=== PATIENT | male | born 1975 | race Caucasian/White ===

== ENCOUNTER 2018-06-17 22:47 | Observation (INO) | payer MEDICARE ==
[2018-06-17 23:26] VITALS: BMI 32.2
--- NOTE | 2018-06-17 23:30 | PDOC ---
History of Present Illness - General Chief Complaint: Chest Pain Stated Complaint: CHEST PAIN Time Seen by Provider: 06/17/18 23:14 History Source: Patient Exam Limitations: Language Barrier - History of Present Illness Initial Comments: History is interpreted with a Divehi speaking telecommunications sales representative. 42 yo M w a hx of HTN and HCL presents to the ER via private auto because he feels badly has some shortness of breath and some pain in his left arm. He has been experiencing his SOB and difficulty breathing for 3 days which has not been getting better or worse but staying the same. He says his left arm pain causes his hands to feel numb and occasionally sweaty. He endorses left sided chest pain which is rated 7/10 in intensity and does not radiate. He endorses nausea but denies emesis. He also endorses nausea associated with the chest pain but denies diaphoresis. The pain is worse when he does any physical activity. He says the pain feels like a squeezing pressure type of sensation. He says he can lie flat at night with no difficulty. The chest pain has been continuous for the past 3 days. He also endorses having a dry cough during this time period. He denies any recent fevers, chills, infections, weakness, abdominal pain, diarrhea, constipation, headache, neck pain, blurry vision, dizziness, lightheadedness, or vertigo PCP: None PSH: Left foot surgery Allergies: NKA, NKDA Social Hx: Denies smoking, 20 beers a month, Denies other substance usage. Past History - Past Medical History Allergies/Adverse Reactions: Allergies Allergy/AdvReac Type Severity Reaction Status Date / Time No Known Allergies Allergy Verified 06/17/18 23:00 Home Medications: Ambulatory Orders NK [No Known Home Medication] 06/17/18 COPD: No - Suicide/Smoking/Psychosocial Hx Smoking History: Never smoked Have you smoked in the past 12 months: No Information on smoking cessation initiated: No Hx Alcohol Use: No Drug/Substance Use Hx: No Review of Systems - Review of Systems Able to Perform ROS?: Yes Comments:: CONSTITUTIONAL: Absent: fever, no chills, no fatigue EYES: Absent: visual changes ENT: Absent: ear pain, no sore throat CARDIOVASCULAR: Present: Chest pain Absent: no palpitations RESPIRATORY: Present: cough, SOB GI: Present: Nausea Absent: abdominal pain, no vomiting, no constipation, no diarrhea GENITOURINARY: Absent: dysuria, no frequency, no hematuria MUSKULOSKELETAL: Absent: back pain, no arthralgia, no myalgia SKIN: Absent: rash NEURO: Absent: headache *Physical Exam - Vital Signs Last Vital Signs Temp Pulse Resp BP Pulse Ox 97.9 F 104 H 22 H 148/94 97 06/17/18 22:52 06/17/18 22:52 06/17/18 22:52 06/17/18 22:52 06/17/18 22:52 - Physical Exam Comments: GENERAL: Well-appearing, well-nourished. No apparent distress. HEENT: Normocephalic, atraumatic. PERRL, EOM intact. CARDIOVASCULAR: Normal S1, S2. tachycardic rate and regular rhythm. PULMONARY: Tachypnic. No evidence of respiratory distress. Lungs clear to auscultation bilaterally. No wheezing, rales or rhonchi. ABDOMEN: Soft, non-distended, non-tender. EXTREMITIES: Normal ROM in all four extremities. No gross deformities. SKIN: Warm, dry. No rash NEUROLOGICAL: No focal neurological deficits. Moderate Sedation - Procedure Monitoring Vital Signs: Procedure Monitoring Vital Signs Temperature 97.9 F 06/17/18 22:52 Pulse Rate 104 H 06/17/18 22:52 Respiratory Rate 22 H 06/17/18 22:52 Blood Pressure 148/94 06/17/18 22:52 O2 Sat by Pulse Oximetry (%) 97 06/17/18 22:52 Heart Score/ECG Review - History History: Slightly suspicious - Age Age: </= 45 - Risk Factors Risk Factors Heart Score: Yes Hx Hypercholesterolemia, Yes Hx Hypertension Based on the list above the patient has:: 1-2 risk factors ED Treatment Course - LABORATORY CBC & Chemistry Diagram: 06/17/18 23:40 06/17/18 23:40 Medical Decision Making - Medical Decision Making 42 yo M w a hx of HTN and HCL presents to the ER via private auto because he feels badly has some shortness of breath and some pain in his left arm. He has been experiencing his SOB and difficulty breathing for 3 days which has not been getting better or worse but staying the same. He says his left arm pain causes his hands to feel numb and occasionally sweaty. He endorses left sided chest pain which is rated 7/10 in intensity and does not radiate. He endorses nausea but denies emesis. He also endorses nausea associated with the chest pain but denies diaphoresis. The pain is worse when he does any physical activity. He says the pain feels like a squeezing pressure type of sensation. He says he can lie flat at night with no difficulty. The chest pain has been continuous for the past 3 days. He also endorses having a dry cough during this time period. VS: Tachycardic, tachypnic, hypertensive DDx IBNLT: ACS/TN, Pneumothorax, PNA, Arrhythmia, costochondritis, URI, MSK chest pain, PE, Heart failure. Plan: Labs, CXR, EKG, Urine, aspirin, Continuous cardiac monitoring, re-assess. - Patient will likely be admitted to telemetry - EKG normal sinus. - Signing out patient to overnight resident for continued care. *DC/Admit/Observation/Transfer Diagnosis at time of Disposition: Chest pain - Referrals - Patient Instructions - Post Discharge Activity
[2018-06-17] MEDS ORDERED: ASPIRIN 81 MG CHEWABLE TABLETS PO ONE (23:34)
[2018-06-17] MEDS ORDERED: ASPIRIN 81 MG CHEWABLE TABLETS ONE (23:39)
[2018-06-17 23:51] LABS: BASO % 0.6 % (0-2.0); EOS % 3.6 % (0-4.5); HEMATOCRIT 43.5 % (35.4-49); HEMOGLOBIN 14.8 GM/dL (11.7-16.9); LYMPH % 26.6 % (8-40); MCH 28.5 pg (25.7-33.7); MCHC 34.1 g/dl (32.0-35.9); MEAN CELL VOLUME 83.7 fl (80-96); MEAN PLT VOLUME 8.9 fl (7.5-11.1); MONO % 10.1 % (3.8-10.2); NEUT % 59.1 % (42.8-82.8); PLATELET COUNT 215 K/MM3 (134-434); RBC 5.19 M/mm3 (4.00-5.60); RDW 13.3 % (11.9-15.9); WHITE BLOOD COUNT 9.6 K/mm3 (4.0-10.0)
--- NOTE | 2018-06-18 00:12 | PDOC ---
Attending Attestation - Resident Resident Name: Jorge L Breaux - ED Attending Attestation I have performed the following: I have examined & evaluated the patient, The case was reviewed & discussed with the resident, I agree w/resident's findings & plan, Exceptions are as noted - HPI HPI: 06/18/18 00:48 THis is a 42 yo M h/o HLD, HTN who presents to the ER with a complaint of chest pain Symptoms have been present for the past 3 days Associated with radiation to the left leg No shortness of breath (+) diaphoresis No nausea or vomiting Not worse with exertion No recent travel, no lower extremity edema - Physicial Exam PE: 06/18/18 00:11 GENERAL: The patient is in no acute distress. HEAD: Normal with no signs of trauma. EYES: PERRLA, EOMI, sclera anicteric, conjunctiva clear. ENT: Ears normal, nares patent, oropharynx clear without exudates. Moist mucous membranes. NECK: Normal range of motion, supple without lymphadenopathy, JVD, or masses. LUNGS: Breath sounds equal, clear to auscultation bilaterally. No wheezes, and no crackles. HEART:Regular rate and rhythm, normal S1 and S2 without murmur, rub or gallop. ABDOMEN: Soft, nontender, normoactive bowel sounds. No guarding, no rebound. No masses palpable. EXTREMITIES: Normal range of motion, no edema. No clubbing or cyanosis. No erythema, or tenderness. NEUROLOGICAL: Cranial nerves II through XII grossly intact. Normal speech. No focal neurological deficits. MUSCULOSKELETAL: Back non-tender to palpation, no CVA tenderness SKIN: Warm, Dry, normal turgor, no rashes or lesions noted. - Medical Decision Making 06/18/18 00:11 EKG - Twelve-lead EKG was performed and reviewed by me. There is normal sinus rhythm with a normal rate. The axis is normal. The intervals are normal. There are no ST or T wave abnormalities. Impression: Normal twelve-lead EKG 06/18/18 00:11 Laboratory Tests 06/17/18 23:40 WBC 9.6 Hgb 14.8 Hct 43.5 Plt Count 215 06/18/18 01:39 Laboratory Tests 06/17/18 06/17/18 23:40 23:40 D-Dimer 399 Sodium 135 L Potassium 3.7 Chloride 102 Carbon Dioxide 26 BUN 14 Creatinine 0.8 Creatine Kinase 250 Creatine Kinase Index 1.6 CK-MB (CK-2) 4.1 H Troponin I < 0.02 B-Natriuretic Peptide 18.4 D dimer negative Will plan to place on observation Heart Score/ECG Review - History History: Highly suspicious - Electrocardiogram EKG: Normal - Age Age: </= 45 - Risk Factors Risk Factors Heart Score: Yes Hx Hypercholesterolemia, Yes Hx Hypertension, No Smoking History, No Positive family hx of cardiac disease, Yes Hx Obesity Based on the list above the patient has:: >/=3 risk factors or Hx atherosclerotic disease - Troponin Troponin: </= normal limit - Score Heart Score - Total: 4
[2018-06-18 00:20] LABS: INR 1.02 (0.83-1.09)
[2018-06-18 00:25] LABS: ALK PHOS 89 U/L (45-117); ANION GAP 7 MMOL/L (8-16); BILIRUBIN,TOTAL 0.3 mg/dL (0.2-1); BLOOD UREA NITROGEN 14 mg/dL (7-18); CALCIUM 8.9 mg/dL (8.5-10.1); CHLORIDE 102 mmol/L (98-107); CO2 26 mmol/L (21-32); CREATININE 0.8 mg/dL (0.55-1.3); GLUCOSE,RANDOM 126 mg/dL (74-106); MAGNESIUM 2.3 mg/dL (1.8-2.4); N-TERMINAL BNP 18.4 pg/ml (5-125); POTASSIUM 3.7 mmol/L (3.5-5.1); SGOT/AST 26 U/L (15-37); SGPT/ALT 70 U/L (13-61); SODIUM 135 mmol/L (136-145)
--- NOTE | 2018-06-18 00:31 | PDOC ---
*Physical Exam - Vital Signs Last Vital Signs Temp Pulse Resp BP Pulse Ox 97.9 F 84 18 148/94 97 06/17/18 22:52 06/18/18 00:22 06/18/18 00:22 06/17/18 22:52 06/17/18 22:52 Heart Score/ECG Review - History History: Highly suspicious - Electrocardiogram EKG: Normal - Age Age: </= 45 - Risk Factors Risk Factors Heart Score: Yes Hx Hypercholesterolemia, Yes Hx Hypertension, Yes Hx Obesity Based on the list above the patient has:: >/=3 risk factors or Hx atherosclerotic disease - Troponin Troponin: </= normal limit - Score Heart Score - Total: 4 ED Treatment Course - LABORATORY CBC & Chemistry Diagram: 06/17/18 23:40 06/17/18 23:40 - ADDITIONAL ORDERS Additional order review: Laboratory Results 06/17/18 06/17/18 23:40 23:40 PT with INR 12.00 INR 1.02 Sodium 135 L Potassium 3.7 Chloride 102 Carbon Dioxide 26 Anion Gap 7 L BUN 14 Creatinine 0.8 Creat Clearance w eGFR > 60 Random Glucose 126 H Calcium 8.9 Magnesium 2.3 Total Bilirubin 0.3 AST 26 ALT 70 H Alkaline Phosphatase 89 Creatine Kinase 250 Troponin I < 0.02 B-Natriuretic Peptide 18.4 Total Protein 8.0 Albumin 4.0 06/17/18 23:40 RBC 5.19 MCV 83.7 MCHC 34.1 RDW 13.3 MPV 8.9 Neutrophils % 59.1 Lymphocytes % 26.6 Monocytes % 10.1 Eosinophils % 3.6 Basophils % 0.6 - Medications Given in the ED: ED Medications Discontinued Medications Generic Name Dose Route Start Last Admin Trade Name Freq PRN Reason Stop Dose Admin Aspirin 162 mg 06/17/18 23:34 06/17/18 23:47 Asa - PO 06/17/18 23:35 162 mg ONCE ONE Administration Medical Decision Making - Medical Decision Making 06/18/18 00:[address] Coughlin. Patient is 42M with history of HTN, obesity, HLD here today with typical chest pain. EKG shows nsr, no st or t wave changes. Pending labs. D-dimer ordered due to tachycardia. Will admit, HEART score of 4 pending trop. 06/18/18 01:03 CBC, CMP normal. Trop neg. D-dimer negative. CXR clear. Medicine team paged. *DC/Admit/Observation/Transfer Diagnosis at time of Disposition: Chest pain - Discharge Dispostion Condition at time of disposition: Stable Decision to Admit order: Yes - Referrals - Patient Instructions - Post Discharge Activity
[2018-06-18] MEDS ORDERED: ACETAMINOPHEN 325 MG TABLET (FP) PO ONE (02:24)
[2018-06-18] MEDS ORDERED: ACETAMINOPHEN 325 MG TABLET (FP) ONE ×2 (02:38→12:04)
--- NOTE | 2018-06-18 03:25 | PN ---
Teaching Attending Note Name of Resident: Patt Block ATTENDING PHYSICIAN STATEMENT I saw and evaluated the patient. I reviewed the resident's note and discussed the case with the resident. I agree with the resident's findings and plan as documented. SUBJECTIVE: Patient is a 42 year old man with PMH of HTN and HLD who presents to the ER via private auto because he feels badly, and has some shortness of breath and some pain in his left arm. He has been experiencing his SOB and difficulty breathing for 3 days which has not been getting better or worse but staying the same. He says his left arm pain causes his hands to feel numb and occasionally sweaty. He also has left sided chest pain which is rated 7/10 in intensity and does not radiate. He has nausea but denies vomiting or diaphoresis. The pain is worse when he does any physical activity. He says the pain feels like a squeezing pressure type of sensation. He says he can lie flat at night with no difficulty. The chest pain has been continuous for the past 3 days. He also has had a dry cough during this time period. Says he drinks 10 beers every week. Patient denies any recent fevers, chills, infections, weakness, abdominal pain, diarrhea, constipation, headache, neck pain, blurry vision, dizziness, lightheadedness, or vertigo OBJECTIVE: Alert Vital Signs Period Temp Pulse Resp BP Sys/Kay Pulse Ox Last 24 Hr 97.9 F 84-104 18-22 127-148/84-94 97 HEENT: No Jaundice, eye redness or discharge, PERRLA, EOMI. Normocephalic, atraumatic. External ears are normal and hearing is grossly intact. No nasal discharge. Neck: Supple, nontender. No palpable adenopathy or thyromegaly. No JVD Chest: Good effort. Clear to auscultation and percussion. Heart: Regular. No S3, rub or murmur Abdomen: Not distended, soft, nontender and no HSM. No rebound or guarding. Normoactive bowel sounds. Ext: Peripheral pulses intact. No leg edema. Skin: Warm and dry. No petechiae, rash or ecchymosis. Neuro: Alert. Oriented x3. CN 2-12 grossly intact. Sensation grossly intact in all four extremities and DTR are symmetric. Home Medications Medication Instructions Recorded NK [No Known Home Medication] 06/17/18 Abnormal Lab Results 06/17/18 23:40 Sodium 135 L Anion Gap 7 L Random Glucose 126 H ALT 70 H CK-MB (CK-2) 4.1 H ASSESSMENT AND PLAN: 1. Chest pain - Patient is now painfree, comfortable at rest, oxygenating well on room air and d-dimer is not elevated. No acute abnormality on CXR, EKG shows NSR with no acute ST-T wave changes and initial troponin is negative. He has multiple risk factors for CAD. Will admit to telemetry to rule out ACS, get fasting lipids, ECHO and consult cardiology. He got Aspirin in the ER. Will check HbA1c and treat with Lipitor 40 mg po qd. 2. Obesity - Will provide patient all the necessary assistance, counseling and positive reinforcement to facilitate weight loss. Consult major case detective. 3. Hypertension - He has not been on any medication consistently. Will treat with Lisinopril 20 mg bid and HCTZ 12.5 mg qd to ensure smooth [id number] good BP control. May revise his regimen after the ECHO result is available. Nonpharmacologic measures to control hypertension like weight loss, salt restriction and exercise discussed. 4. Alcohol abuse - Implement [facility] alcohol withdrawal protocol, fall and aspiration precautions. Treat with thiamine and folic acid and monitor electrolytes (Ca,Mg,K,P). Powder Operator patient about abstaining from alcohol and refer to alcohol detox upon discharge. 5. DVT prophylaxis - Lovenox 40 mg SQ q 24 hours. 6. Advance directives - Full code
--- NOTE | 2018-06-18 03:33 | HP ---
CHIEF COMPLAINT:chest pain PCP:none HISTORY OF PRESENT ILLNESS: Patient is a 42 year old male with no significant past medical history presented with substernal chest pain radiating to the left arm that started 3 days ago. Patient described chest pain as intermittent, substernal, 7/10, pressure-like chest pain, radiating to the left arm, lasting about 2 hours per episode, occurring at least 3 times a day since 3 days ago. Patient is unsure what makes it better or worse, but reported that he has been having the occasional chest pain in the last 5 months, that usually occurs after he drinks alcohol. It usually resolves on its own, but this time, because it happened more frequently patient came to the ED. He denies any fever, chills, headache, dizziness, nausea, vomiting, SOB, palpitations, abdominal pain, diarrhea, urinary symptoms. Patient does not have a PCP, and has not seen a doctor in years. He reports having "high blood pressure" every time he feels anxious and would take baby aspirin. He usually drinks at least 10 bottles of beer weekly, with last drink 12 bottles last night. On interview, patient reported chest pain has resolved. ER course was notable for: (1)Trop <0.02, EKG NSR, no ST-T wave changes (2) (3) Recent Travel: PAST MEDICAL HISTORY: PAST SURGICAL HISTORY: Social History: Smoking: Alcohol: Drugs: Family History: Allergies No Known Allergies Allergy (Verified 06/17/18 23:00) HOME MEDICATIONS: Home Medications Medication Instructions Recorded NK [No Known Home Medication] 06/17/18 REVIEW OF SYSTEMS CONSTITUTIONAL: Absent: fever, chills, diaphoresis, generalized weakness, malaise, loss of appetite, weight change HEENT: Absent: rhinorrhea, nasal congestion, throat pain, throat swelling, difficulty swallowing, mouth swelling, ear pain, eye pain, visual changes CARDIOVASCULAR: Absent: chest pain, syncope, palpitations, irregular heart rate, lightheadedness , peripheral edema RESPIRATORY: Absent: cough, shortness of breath, dyspnea with exertion, orthopnea, wheezing, stridor, hemoptysis GASTROINTESTINAL: Absent: abdominal pain, abdominal distension, nausea, vomiting, diarrhea, constipation, melena, hematochezia GENITOURINARY: Absent: dysuria, frequency, urgency, hesitancy, hematuria, flank pain, genital pain MUSCULOSKELETAL: Absent: myalgia, arthralgia, joint swelling, back pain, neck pain SKIN: Absent: rash, itching, pallor HEMATOLOGIC/IMMUNOLOGIC: Absent: easy bleeding, easy bruising, lymphadenopathy, frequent infections ENDOCRINE: Absent: unexplained weight gain, unexplained weight loss, heat intolerance, cold intolerance NEUROLOGIC: Absent: headache, focal weakness or paresthesias, dizziness, unsteady gait, seizure, mental status changes, bladder or bowel incontinence PSYCHIATRIC: Absent: anxiety, depression, suicidal or homicidal ideation, hallucinations. PHYSICAL EXAMINATION Vital Signs - 24 hr 06/17/18 06/18/18 06/18/18 22:52 00:22 00:33 Temperature 97.9 F Pulse Rate 104 H Pulse Rate [ 84 Apical] Respiratory 22 H 18 Rate Blood Pressure 148/94 Blood Pressure 127/84 [Right Arm] O2 Sat by Pulse 97 Oximetry (%) GENERAL: Awake, alert, and fully oriented, in no acute distress. HEAD: Normal with no signs of trauma. EYES: PERRLA, EOMI, sclera anicteric, conjunctiva clear. EARS, NOSE, THROAT: Ears normal, oropharynx clear without exudates. Moist mucous membranes. NECK: Normal range of motion, supple without lymphadenopathy, JVD, or masses. LUNGS: Breath sounds equal, clear to auscultation bilaterally. HEART: Regular rate and rhythm, normal S1 and S2 without murmur, rub or gallop. ABDOMEN: Soft, nontender, not distended, normoactive bowel sounds. MUSCULOSKELETAL: Normal range of motion at all joints. No bony deformities or tenderness. No CVA tenderness. UPPER EXTREMITIES: 2+ pulses, warm, well-perfused. No peripheral edema. LOWER EXTREMITIES: 2+ pulses, warm, well-perfused. No peripheral edema. NEUROLOGICAL: Cranial nerves II-XII intact. Motor strength 5/5, sensation intact. Normal speech. Normal gait. PSYCHIATRIC: Cooperative. Good eye contact. Appropriate mood and affect. SKIN: Warm, dry, normal turgor, no rashes or lesions. Laboratory Results - last 24 hr 06/17/18 06/17/18 06/17/18 23:40 23:40 23:40 WBC 9.6 RBC 5.19 Hgb 14.8 Hct 43.5 MCV 83.7 MCH 28.5 MCHC 34.1 RDW 13.3 Plt Count 215 MPV 8.9 Absolute Neuts (auto) 5.7 Neutrophils % 59.1 Lymphocytes % 26.6 Monocytes % 10.1 Eosinophils % 3.6 Basophils % 0.6 Nucleated RBC % 0 PT with INR 12.00 INR 1.02 PTT (Actin FS) D-Dimer Sodium 135 L Potassium 3.7 Chloride 102 Carbon Dioxide 26 Anion Gap 7 L BUN 14 Creatinine 0.8 Creat Clearance w eGFR > 60 Random Glucose 126 H Calcium 8.9 Magnesium 2.3 Total Bilirubin 0.3 AST 26 ALT 70 H Alkaline Phosphatase 89 Creatine Kinase 250 Creatine Kinase Index 1.6 CK-MB (CK-2) 4.1 H Troponin I < 0.02 B-Natriuretic Peptide 18.4 Total Protein 8.0 Albumin 4.0 06/17/18 06/17/18 23:40 23:40 WBC RBC Hgb Hct MCV MCH MCHC RDW Plt Count MPV Absolute Neuts (auto) Neutrophils % Lymphocytes % Monocytes % Eosinophils % Basophils % Nucleated RBC % PT with INR INR PTT (Actin FS) 30.3 D-Dimer 399 Sodium Potassium Chloride Carbon Dioxide Anion Gap BUN Creatinine Creat Clearance w eGFR Random Glucose Calcium Magnesium Total Bilirubin AST ALT Alkaline Phosphatase Creatine Kinase Creatine Kinase Index CK-MB (CK-2) Troponin I B-Natriuretic Peptide Total Protein Albumin ASSESSMENT/PLAN: Patient is a 42 year old male with no significant past medical history presented with substernal chest pain radiating to the left arm that started 3 days ago. #Chest pain, rule out ACS -trop negative x1, EKG -NSR with no ST-T wave changes -will trend trop and EKG -Aspirin given at the ED -Echo -Lipid profile -HbA1c -Cardiology (Dr. Marshall) consulted #Hypertension -Has not been on any medications -Will start Lisinopril 20mg BID and HCTZ 12.5mg daily if BP remains elevated -Monitor BP #EtOH abuse -CIWA currently 0 -will continue to monitor -Ativan PRN for now -Fall and aspiration precautions -Will give thiamine and folic acid #FEN -Not on any standing fluids -Electrolytes wnl, routine bmp monitoring -Sodium controlled diet #Prophylaxis -Lovenox 40mg sq daily #Disposition -full code -tele obs Visit type - Emergency Visit Emergency Visit: Yes ED Registration Date: 06/18/18 Care time: The patient presented to the Emergency Department on the above date and was hospitalized for further evaluation of their emergent condition. - New Patient This patient is new to [place] today: Yes Date on this admission: 06/18/18 - Critical Care Critical Care patient: No
[2018-06-18 03:54] LABS: URINE APPEARANCE CLEAR; URINE BILIRUBIN NEGATIVE (<2.0 mg/dL); URINE COLOR STRAW; URINE GLUCOSE (UA) NEGATIVE (NEGATIVE); URINE KETONE NEGATIVE (NEGATIVE); URINE LEUK ESTERASE NEGATIVE (NEGATIVE); URINE NITRITE NEGATIVE (NEGATIVE); URINE PROTEIN NEGATIVE (NEGATIVE); URINE UROBILINOGEN NEGATIVE mg/dL (0.2-1.0)
[2018-06-18] MEDS ORDERED: LORazepam 2 MG/ML SDV VIAL IVPUSH PRN (04:23)
[2018-06-18 07:31] LABS: BASO % 0.4 % (0-2.0); EOS % 6.2 % (0-4.5); HEMATOCRIT 42.1 % (35.4-49); HEMOGLOBIN 14.2 GM/dL (11.7-16.9); LYMPH % 32.9 % (8-40); MCHC 33.8 g/dl (32.0-35.9); MEAN CELL VOLUME 82.7 fl (80-96); MEAN PLT VOLUME 9.6 fl (7.5-11.1); MONO % 9.4 % (3.8-10.2); NEUT % 51.1 % (42.8-82.8); PLATELET COUNT 218 K/MM3 (134-434); RBC 5.09 M/mm3 (4.00-5.60); RDW 13.6 % (11.9-15.9); WHITE BLOOD COUNT 7.5 K/mm3 (4.0-10.0)
[2018-06-18 08:02] LABS: ALBUMIN 3.8 g/dl (3.4-5.0); ALK PHOS 77 U/L (45-117); ANION GAP 6 MMOL/L (8-16); BILIRUBIN,TOTAL 0.4 mg/dL (0.2-1); BLOOD UREA NITROGEN 14 mg/dL (7-18); CALCIUM 8.7 mg/dL (8.5-10.1); CHLORIDE 102 mmol/L (98-107); CO2 28 mmol/L (21-32); CREATININE 0.7 mg/dL (0.55-1.3); GLUCOSE,RANDOM 110 mg/dL (74-106); MAGNESIUM 2.4 mg/dL (1.8-2.4); PHOSPHOROUS 3.5 mg/dL (2.5-4.9); POTASSIUM 3.9 mmol/L (3.5-5.1); SGOT/AST 21 U/L (15-37); SGPT/ALT 63 U/L (13-61); SODIUM 136 mmol/L (136-145); TOT PROT 7.5 g/dl (6.4-8.2)
[2018-06-18] MEDS ORDERED: ENOXAPARIN NA (PORCINE) 40 MG/0.4 ML DISP.SYRIN SQ SCH (10:00)
[2018-06-18] MEDS ORDERED: THIAMINE HCL 100 MG TABLET (FP) PO SCH (10:00)
[2018-06-18] MEDS ORDERED: FOLIC ACID 1 MG TABLET (FP) PO SCH (10:00)
[2018-06-18] MEDS ORDERED: HYDROCHLOROTHIAZIDE 12.5 MG CAPSULE (FP) PO SCH (10:00)
[2018-06-18] MEDS ORDERED: LISINOPRIL 20 MG TABLET (FP) PO SCH (10:00)
[2018-06-18 10:12] VITALS: BP 119/78; PULSE 64; TEMP 98.2
--- NOTE | 2018-06-18 10:51 | CON.CARD ---
Cardiology Consult (text) - Consultation Consultation Note: cc: cp hpi: 42 m hx etoh abuse here with cp. Past few days noticed left chest pressure with radiation to left arm as well. Mild, happened at rest, worse when moving left arm around. Mild sob as well. No dizzy loc pnd orthopnea le edema. No hx hrt dz. Cp resolved now, feels well. pmh: per hpi psh: foot surgery fam: no premature cad, scd social: no tob ros: per hpi; no fever, nvd, cough locke vision changes gib hematuria dysuria meds: none taken Vital Signs Period Temp Pulse Resp BP Sys/Kay Pulse Ox Last 24 Hr 97.9 F-98.2 F 64-104 18-22 119-148/78-94 97-97 nad no jvd rrr s1s2 no mrg cta bl nl eff aaox3 no le e/c/c abd nt nd pos bs no jaundice diaphoresis pos dp pt no carotid bruits Laboratory Last Values WBC 7.5 K/mm3 (4.0-10.0) 06/18/18 05:45 RBC 5.09 M/mm3 (4.00-5.60) 06/18/18 05:45 Hgb 14.2 GM/dL (11.7-16.9) 06/18/18 05:45 Hct 42.1 % (35.4-49) 06/18/18 05:45 MCV 82.7 fl (80-96) 06/18/18 05:45 MCH 28.0 pg (25.7-33.7) 06/18/18 05:45 MCHC 33.8 g/dl (32.0-35.9) 06/18/18 05:45 RDW 13.6 % (11.9-15.9) 06/18/18 05:45 Plt Count 218 K/MM3 (134-434) 06/18/18 05:45 MPV 9.6 fl (7.5-11.1) 06/18/18 05:45 Absolute Neuts (auto) 3.8 K/mm3 (1.5-8.0) 06/18/18 05:45 Neutrophils % 51.1 % (42.8-82.8) 06/18/18 05:45 Lymphocytes % 32.9 % (8-40) D 06/18/18 05:45 Monocytes % 9.4 % (3.8-10.2) 06/18/18 05:45 Eosinophils % 6.2 % (0-4.5) H 06/18/18 05:45 Basophils % 0.4 % (0-2.0) 06/18/18 05:45 Nucleated RBC % 0 % (0-0) 06/18/18 05:45 PT with INR 12.00 SEC (9.7-13.0) 06/17/18 23:40 INR 1.02 (0.83-1.09) 06/17/18 23:40 PTT (Actin FS) 30.3 SECONDS (25.2-36.5) 06/17/18 23:40 D-Dimer 399 ng/ml (0-500) 06/17/18 23:40 Sodium 136 mmol/L (136-145) 06/18/18 05:45 Potassium 3.9 mmol/L (3.5-5.1) 06/18/18 05:45 Chloride 102 mmol/L (98-107) 06/18/18 05:45 Carbon Dioxide 28 mmol/L (21-32) 06/18/18 05:45 Anion Gap 6 MMOL/L (8-16) L 06/18/18 05:45 BUN 14 mg/dL (7-18) 06/18/18 05:45 Creatinine 0.7 mg/dL (0.55-1.3) 06/18/18 05:45 Creat Clearance w eGFR > 60 (>60) 06/18/18 05:45 Random Glucose 110 mg/dL (74-106) H 06/18/18 05:45 Hemoglobin A1c % 6.9 % (4.2-6.3) H 06/18/18 03:41 Calcium 8.7 mg/dL (8.5-10.1) 06/18/18 05:45 Phosphorus 3.5 mg/dL (2.5-4.9) 06/18/18 05:45 Magnesium 2.4 mg/dL (1.8-2.4) 06/18/18 05:45 Total Bilirubin 0.4 mg/dL (0.2-1) 06/18/18 05:45 AST 21 U/L (15-37) 06/18/18 05:45 ALT 63 U/L (13-61) H 06/18/18 05:45 Alkaline Phosphatase 77 U/L (45-117) 06/18/18 05:45 Creatine Kinase 250 U/L (26-308) 06/17/18 23:40 Creatine Kinase Index 1.6 % (0.0-5.0) 06/17/18 23:40 CK-MB (CK-2) 4.1 ng/mL (0.5-3.6) H 06/17/18 23:40 Troponin I < 0.02 ng/ml (0.00-0.05) 06/18/18 03:41 B-Natriuretic Peptide 18.4 pg/ml (5-125) 06/17/18 23:40 Total Protein 7.5 g/dl (6.4-8.2) 06/18/18 05:45 Albumin 3.8 g/dl (3.4-5.0) 06/18/18 05:45 Triglycerides 142 mg/dL (0-150) 06/18/18 03:41 Cholesterol 188 mg/dL (50-200) 06/18/18 03:41 Total LDL Cholesterol 127 mg/dL (5-100) H 06/18/18 03:41 HDL Cholesterol 44 mg/dL (40-60) 06/18/18 03:41 TSH 1.58 uIU/ml (0.358-3.74) 06/18/18 03:41 Urine Color Straw 06/18/18 03:45 Urine Appearance Clear 06/18/18 03:45 Urine pH 6.0 (5.0-8.0) 06/18/18 03:45 Ur Specific [place] 1.010 (1.010-1.035) 06/18/18 03:45 Urine Protein Negative (NEGATIVE) 06/18/18 03:45 Urine Glucose (UA) Negative (NEGATIVE) 06/18/18 03:45 Urine Ketones Negative (NEGATIVE) 06/18/18 03:45 Urine Blood Negative (NEGATIVE) 06/18/18 03:45 Urine Nitrite Negative (NEGATIVE) 06/18/18 03:45 Urine Bilirubin Negative (<2.0 mg/dL) 06/18/18 03:45 Urine Urobilinogen Negative mg/dL (0.2-1.0) 06/18/18 03:45 Ur Leukocyte Esterase Negative (NEGATIVE) 06/18/18 03:45 Blood Type O POSITIVE 06/17/18 23:40 Antibody Screen Negative 06/17/18 23:40 cxr: clear lungs ecg: sr, nl intervals, irbbb tele: sr a/p: 42 m hx etoh abuse here with cp. cp: -atypical features, resolved now -no signs acs, trops negative -no signs chf, bnp low -echo and ett are pending, if benign then ok for dc from cardiac pov
--- NOTE | 2018-06-18 11:22 | ECHO ---
Name: QUYEN NOEL Exam:Adult Echocardiogram Study Date: 06/18/2018 10:04 AM Age: 42 yrs Reason For Study: CHEST PAIN ASSESS LVF Height: 60 in Weight: 165 lb BSA: 1.7 m2 MMode/2D Measurements & Calculations IVSd: 0.83 cm Ao root diam: 3.0 cm LVIDd: 4.4 cm LA dimension: 3.7 cm LVIDs: 3.1 cm LVPWd: 0.78 cm EDV(Teich): 86.0 ml TAPSE: 2.5 cm ESV(Teich): 37.2 ml Doppler Measurements & Calculations MV E max marty: 77.5 cm/sec Ao V2 max: 105.0 cm/sec MV A max marty: 60.2 cm/sec Ao max P.4 mmHg MV E/A: 1.3 MV dec time: 0.18 sec LV V1 max P.0 mmHg TR max marty: 144.7 cm/sec LV V1 max: 87.1 cm/sec TR max P.4 mmHg Med Peak E' Marty: 5.4 cm/sec Med E/e': 14.5 Lat Peak E' Marty: 10.4 cm/sec Lat E/e': 7.4 Left Ventricle Left ventricular systolic function is normal. Ejection Fraction = 55-60%. The transmitral spectral Do ppler flow pattern is normal for age. Right Ventricle The right ventricle is grossly normal size. The right ventricular systolic function is grossly normal . Atria Normal left and right atrial size and function. Mitral Valve The mitral valve is normal in structure and function. No significant mitral valve stenosis. There is mild mitral regurgitation. Tricuspid Valve The tricuspid valve is normal in structure and function. There is mild tricuspid regurgitation. Aortic Valve The aortic valve opens well. No hemodynamically significant valvular aortic stenosis. No aortic regur gitation is present. Pulmonic Valve The pulmonic valve is not well seen, but is grossly normal. There is no pulmonic valvular stenosis. Great Vessels The aortic root is normal size. Pericardium/Pleura There is no pericardial effusion. Epicardial fat pad. Interpretation Summary Left ventricular systolic function is normal. Ejection Fraction = 55-60%. The transmitral spectral Doppler flow pattern is normal for age. The right ventricle is grossly normal size. The right ventricular systolic function is grossly normal. There is mild mitral regurgitation. There is mild tricuspid regurgitation. No aortic regurgitation is present. The aortic root is normal size. MD Zamarripa *Kvng 06/18/2018 11:21 AM
--- NOTE | 2018-06-18 11:45 | TRE ---
Protocol Name : MARLENI Max Work Load (METS*10) : 85 Time In Exercise Phase : 00:07:00 Max. Systolic BP : 166 mmHg Max Diastolic BP : 80 mmHg Max Heart Rate : 160 BPM Max Predicted Heart Rate : 176 BPM Attending Physician : DR. BYRD Reason For Termination : Target Heart Rate Achieved Reason for Test : CHEST PAIN Stress Protocol : MARLENI Rest HR : 111 BPM PeakEx METs : 8.5 METS Recovery ECG Response (OLD) : Diagnosis : The patient completed 7:00 of a standard Marleni Protocol achieving a work load of 9 METS. The resting heart rate of 90bpm parrish to a peak of 160bpm representing 90% of age predicted maximum heart rate. The baseline BP of 130/80 parrish to a peak of 160/80, which was an appropriate response. The exercise was stopped due to achievement of the target heart rate. The Baseline ECG showed Sinus Tachycardia at 109 bpm. There were no diagnostic ischemic ST changes during exercise nor during recovery. There were no arrhythmias. The patient remained asymptomatic throughout. Conclusion: Negative stress test. Mercado treadmill score of 7 portends an overall low 5 year risk of CV mortality. Confirmed by ZACHERY BYRD MD ([id number]) on 06/18/2018 11:44:40 AM
--- NOTE | 2018-06-18 12:24 | DS ---
Physical Exam: SUBJECTIVE: Patient seen and examined, no complaints. Denies any chest pain, dyspnea, palpitations, anxiety, tremors or new concerns. Feels well. OBJECTIVE: Vital Signs Period Temp Pulse Resp BP Sys/Kay Pulse Ox Last 24 Hr 97.9 F-98.2 F 64-104 18-22 119-148/78-94 97-97 PHYSICAL EXAM GENERAL: The patient is awake, alert, and fully oriented, in no acute distress, obese male. HEAD: Normal with no signs of trauma. EYES: PERRL, extraocular movements intact, sclera anicteric, conjunctiva clear. ENT: Ears normal, nares patent, oropharynx clear without exudates, moist mucous membranes. NECK: Trachea midline, full range of motion, supple. LUNGS: Breath sounds equal, clear to auscultation bilaterally, no wheezes, no crackles, no accessory muscle use. HEART: Regular rate and rhythm, S1, S2 ABDOMEN: Soft, nontender, nondistended, normoactive bowel sounds, no guarding, no rebound EXTREMITIES: 2+ pulses, warm, well-perfused, no edema. NEUROLOGICAL: Cranial nerves II through XII grossly intact. Normal speech, gait not observed. PSYCH: Normal mood, normal affect. SKIN: Warm, dry, normal turgor, no rashes or lesions noted. LABS Laboratory Results - last 24 hr 06/17/18 06/17/18 06/17/18 23:40 23:40 23:40 WBC 9.6 RBC 5.19 Hgb 14.8 Hct 43.5 MCV 83.7 MCH 28.5 MCHC 34.1 RDW 13.3 Plt Count 215 MPV 8.9 Absolute Neuts (auto) 5.7 Neutrophils % 59.1 Lymphocytes % 26.6 Monocytes % 10.1 Eosinophils % 3.6 Basophils % 0.6 Nucleated RBC % 0 PT with INR 12.00 INR 1.02 PTT (Actin FS) D-Dimer Sodium 135 L Potassium 3.7 Chloride 102 Carbon Dioxide 26 Anion Gap 7 L BUN 14 Creatinine 0.8 Creat Clearance w eGFR > 60 Random Glucose 126 H Hemoglobin A1c % Calcium 8.9 Phosphorus Magnesium 2.3 Total Bilirubin 0.3 AST 26 ALT 70 H Alkaline Phosphatase 89 Creatine Kinase 250 Creatine Kinase Index 1.6 CK-MB (CK-2) 4.1 H Troponin I < 0.02 B-Natriuretic Peptide 18.4 Total Protein 8.0 Albumin 4.0 Triglycerides Cholesterol Total LDL Cholesterol HDL Cholesterol TSH Urine Color Urine Appearance Urine pH Ur Specific [place] Urine Protein Urine Glucose (UA) Urine Ketones Urine Blood Urine Nitrite Urine Bilirubin Urine Urobilinogen Ur Leukocyte Esterase Blood Type Antibody Screen 06/17/18 06/17/18 06/17/18 23:40 23:40 23:40 WBC RBC Hgb Hct MCV MCH MCHC RDW Plt Count MPV Absolute Neuts (auto) Neutrophils % Lymphocytes % Monocytes % Eosinophils % Basophils % Nucleated RBC % PT with INR INR PTT (Actin FS) 30.3 D-Dimer 399 Sodium Potassium Chloride Carbon Dioxide Anion Gap BUN Creatinine Creat Clearance w eGFR Random Glucose Hemoglobin A1c % Calcium Phosphorus Magnesium Total Bilirubin AST ALT Alkaline Phosphatase Creatine Kinase Creatine Kinase Index CK-MB (CK-2) Troponin I B-Natriuretic Peptide Total Protein Albumin Triglycerides Cholesterol Total LDL Cholesterol HDL Cholesterol TSH Urine Color Urine Appearance Urine pH Ur Specific [place] Urine Protein Urine Glucose (UA) Urine Ketones Urine Blood Urine Nitrite Urine Bilirubin Urine Urobilinogen Ur Leukocyte Esterase Blood Type O POSITIVE Antibody Screen Negative 06/18/18 06/18/18 06/18/18 03:41 03:41 03:41 WBC RBC Hgb Hct MCV MCH MCHC RDW Plt Count MPV Absolute Neuts (auto) Neutrophils % Lymphocytes % Monocytes % Eosinophils % Basophils % Nucleated RBC % PT with INR INR PTT (Actin FS) D-Dimer Sodium Potassium Chloride Carbon Dioxide Anion Gap BUN Creatinine Creat Clearance w eGFR Random Glucose Hemoglobin A1c % 6.9 H Calcium Phosphorus Magnesium Total Bilirubin AST ALT Alkaline Phosphatase Creatine Kinase Creatine Kinase Index CK-MB (CK-2) Troponin I < 0.02 B-Natriuretic Peptide Total Protein Albumin Triglycerides 142 Cholesterol 188 Total LDL Cholesterol 127 H HDL Cholesterol 44 TSH 1.58 Urine Color Urine Appearance Urine pH Ur Specific [place] Urine Protein Urine Glucose (UA) Urine Ketones Urine Blood Urine Nitrite Urine Bilirubin Urine Urobilinogen Ur Leukocyte Esterase Blood Type Antibody Screen 06/18/18 06/18/18 06/18/18 03:45 05:45 05:45 WBC 7.5 RBC 5.09 Hgb 14.2 Hct 42.1 MCV 82.7 MCH 28.0 MCHC 33.8 RDW 13.6 Plt Count 218 MPV 9.6 Absolute Neuts (auto) 3.8 Neutrophils % 51.1 Lymphocytes % 32.9 D Monocytes % 9.4 Eosinophils % 6.2 H Basophils % 0.4 Nucleated RBC % 0 PT with INR INR PTT (Actin FS) D-Dimer Sodium 136 Potassium 3.9 Chloride 102 Carbon Dioxide 28 Anion Gap 6 L BUN 14 Creatinine 0.7 Creat Clearance w eGFR > 60 Random Glucose 110 H Hemoglobin A1c % Calcium 8.7 Phosphorus 3.5 Magnesium 2.4 Total Bilirubin 0.4 AST 21 ALT 63 H Alkaline Phosphatase 77 Creatine Kinase Creatine Kinase Index CK-MB (CK-2) Troponin I B-Natriuretic Peptide Total Protein 7.5 Albumin 3.8 Triglycerides Cholesterol Total LDL Cholesterol HDL Cholesterol TSH Urine Color Straw Urine Appearance Clear Urine pH 6.0 Ur Specific [place] 1.010 Urine Protein Negative Urine Glucose (UA) Negative Urine Ketones Negative Urine Blood Negative Urine Nitrite Negative Urine Bilirubin Negative Urine Urobilinogen Negative Ur Leukocyte Esterase Negative Blood Type Antibody Screen 2D echo: LV function normal. EF 55-60%, mild mitral regurgitation, mild tricuspid regurgitation Treadmill stress test: negative for ischemia HOSPITAL COURSE: Date of Admission:06/18/18 Date of Discharge: 06/18/18 Minutes to complete discharge: 35 Discharge Summary Reason For Visit: CHEST PAIN Current Active Problems Chest pain (Acute) Hospital Course: 42 yom with alcohol use, admitted with chest pain with left arm symptoms and dyspnea. He was watched on telemetry with no concerns. ACS was ruled out. He had 2D echo with EF 55-60% and no concerning findings. Also had treadmill stress test that was negative. He was seen by cardiology with no additional recommendations. He had an isolated elevated BP reading in the ED, with further stable BP. No concerns was alcohol withdrawal were noted inhouse. He was counseled on dietary/lifestyle changes, advised alcohol cessation and advise outpatient follow up. Condition: Stable - Instructions Diet, Activity, Other Instructions: You were admitted with chest pain, trouble breathing and had stress test that was negative for concerns and 2D echocardiogram. DIET: Strict Low salt low fat diet. ACTIVITY: as tolerated. No driving while drinking Strongly advise alcohol cessation. Follow up with primary care doctor or you can call [facility] to arrange follow up over next 1-2 weeks. (contact information provided) You are advised BP monitoring with your doctor to address if medications need to be started. Low salt low fat diet. Advise lifestyle changes including weight loss and exercise. Please discuss with your doctor in this regard. If you notice any further pain, trouble breathing, headache or new concerns, please call 911 or come to ED. Referrals: Art Fox MD [Staff Physician] - Disposition: HOME - Home Medications Comprehensive Discharge Medication List: Ambulatory Orders NK [No Known Home Medication] 06/17/18 This patient is new to me today: Yes Date on this admission: 06/18/18 Emergency Visit: Yes ED Registration Date: 06/18/18 Care time: The patient presented to the Emergency Department on the above date and was hospitalized for further evaluation of their emergent condition. Critical Care patient: No - Discharge Referral Referred to [facility] No
--- NOTE | 2018-06-18 12:52 | EKG ---
Test Reason : Blood Pressure : / mmHG Vent. Rate : 076 BPM Atrial Rate : 076 BPM P-R Int : 176 ms QRS Dur : 090 ms QT Int : 388 ms P-R-T Axes : 039 -13 -09 degrees QTc Int : 436 ms NORMAL SINUS RHYTHM NORMAL ECG WHEN COMPARED WITH ECG OF 17-JUN-2018 22:55, INCOMPLETE RIGHT BUNDLE BRANCH BLOCK IS NO LONGER PRESENT Confirmed by MALU MATA, BAYLEE ([id number]) on 06/18/2018 12:52:04 PM Referred By: Confirmed By:BAYLEE TORIBIO MD
--- NOTE | 2018-06-18 12:57 | EKG ---
Test Reason : Blood Pressure : / mmHG Vent. Rate : 090 BPM Atrial Rate : 090 BPM P-R Int : 160 ms QRS Dur : 092 ms QT Int : 366 ms P-R-T Axes : 054 001 002 degrees QTc Int : 447 ms NORMAL SINUS RHYTHM POSSIBLE LEFT ATRIAL ENLARGEMENT INCOMPLETE RIGHT BUNDLE BRANCH BLOCK BORDERLINE ECG NO PREVIOUS ECGS AVAILABLE Confirmed by BAYLEE TORIBIO MD ([id number]) on 06/18/2018 12:57:05 PM Referred By: Confirmed By:BAYLEE TORIBIO MD
== END 2018-06-18 13:08 | disposition home or self-care (01) ==
LOC: JER 22:47 → JERBED 06-18 01:36 → J4W 06-18 04:40
PROVIDERS: ADMIT Internal Medicine; ATTEND Hospitalist
PROC: 3E013GC Introduction of Other Therapeutic Substance into Subcutaneous Tissue, Percutaneous Approach (ICD-10-PCS; principal; 2018-06-18)
DX: R07.9 Chest pain, unspecified (principal); I10 Essential (primary) hypertension; E78.5 Hyperlipidemia, unspecified; F10.10 Alcohol abuse, uncomplicated; E66.9 Obesity, unspecified; Z68.35 Body mass index [BMI] 35.0-35.9, adult
CPT/HCPCS: 36415; 71045-TC-FY; 80053; 80061; 81003; 82550; 82553; 83036; 83721; 83735; 83880; 84100; 84443; 84484; 85025; 85379; 85610; 85730; 86850; 86900; 86901; 93005; 93010; 93017; 93018; 93306-TC; 99285-25; G0378

== ENCOUNTER 2024-07-01 16:56 | Inpatient (IN) | payer SELFPAY ==
[2024-07-01 18:18] LABS: BASO % 0.5 % (0-2.0); EOS % 1.6 % (0-4.5); HEMATOCRIT 40.6 % (35.4-49); HEMOGLOBIN 13.7 GM/dL (11.7-16.9); INR 1.1 (0.83-1.09); LYMPH % 16.4 % (8-40); MCH 27.6 pg (25.7-33.7); MCHC 33.7 g/dl (32.0-35.9); MEAN CELL VOLUME 81.8 fl (80-96); MEAN PLT VOLUME 9.7 fl (7.5-11.1); MONO % 6.8 % (3.8-10.2); NEUT % 74.7 % (42.8-82.8); PLATELET COUNT 249 10^3/uL (134-434); PROTHROMBIN TIME (PATIENT) 12.1 SEC (9.7-13.0); RBC 4.96 M/mm3 (4.00-5.60); RDW 13.6 % (11.9-15.9); WHITE BLOOD COUNT 10.4 K/mm3 (4.0-10.0)
[2024-07-01 18:21] LABS: ACTIVATED PTT 28.8 SECONDS (25.2-36.5)
[2024-07-01 18:52] LABS: POTASSIUM 3.5 mmol/L (3.5-5.1)
[2024-07-01] MEDS: SODIUM CHLORIDE 0.9% 500 ML INFUS.BAG IV ONE (18:53)
[2024-07-01 18:54] LABS: CALCIUM 9.1 mg/dL (8.5-10.1)
[2024-07-01 18:55] LABS: ALBUMIN 3.8 g/dl (3.4-5.0); BLOOD UREA NITROGEN 12.2 mg/dL (7-18); MAGNESIUM 1.7 mg/dL (1.8-2.4)
[2024-07-01 18:58] LABS: CREATININE 0.8 mg/dL (0.55-1.3)
[2024-07-01 18:59] LABS: BILIRUBIN,TOTAL 0.5 mg/dL (0.2-1); TOT PROT 7.4 g/dl (6.4-8.2)
[2024-07-01] MEDS ORDERED: MAGNESIUM SULFATE IN WATER 2 GM/50 ML IVPB IVPB ONE (19:29)
[2024-07-01] MEDS: MAGNESIUM SULF 50% (8.12 MEQ/2 ML-1 GM VIAL) IVPB ONE (19:34)
[2024-07-01] MEDS: MAGNESIUM 2GM/50ML STERILE WATER IVPB IVPB ONE (19:34)
[2024-07-01 20:48] LABS: URINE APPEARANCE CLEAR; URINE BILIRUBIN NEGATIVE (NEGATIVE); URINE COLOR YELLOW; URINE GLUCOSE (UA) 2+ (NEGATIVE); URINE KETONE NEGATIVE (NEGATIVE); URINE LEUK ESTERASE NEGATIVE (NEGATIVE); URINE NITRITE NEGATIVE (NEGATIVE); URINE PROTEIN NEGATIVE (NEGATIVE); URINE UROBILINOGEN 0.2 mg/dL (0.2-1.0)
[2024-07-01 20:58] LABS: METHADONE, UR NEGATIVE (NEGATIVE); OPIATES, URI NEGATIVE (NEGATIVE); PHENCYCLIDINE,URINE NEGATIVE (NEGATIVE)
[2024-07-01 20:59] LABS: COCAINE, UR POSITIVE (NEGATIVE); URINE AMPHETAMINES NEGATIVE (NEGATIVE); URINE BARBITURATES NEGATIVE (NEGATIVE); URINE BENZODIAZEPINES NEGATIVE (NEGATIVE)
[2024-07-01 21:31] VITALS: BMI 30.9
[2024-07-01] MEDS: ASPIRIN 81 MG CHEWABLE TABLETS PO ONE (22:38)
[2024-07-01] MEDS: INSULIN (LEVEMIR) 100 UNITS/ML UNITS SQ ONE (22:41)
[2024-07-01] MEDS: INSULIN ASPART SLIDING SCALE (NOVOLOG) 1 VIAL SQ SCH (22:41)
[2024-07-02 07:30] VITALS: RESP 18
[2024-07-02 07:45] LABS: HEMATOCRIT 41.2 % (35.4-49); HEMOGLOBIN 13.7 GM/dL (11.7-16.9); MCH 27.2 pg (25.7-33.7); MCHC 33.3 g/dl (32.0-35.9); MEAN CELL VOLUME 81.8 fl (80-96); MEAN PLT VOLUME 9.7 fl (7.5-11.1); PLATELET COUNT 248 10^3/uL (134-434); RBC 5.04 M/mm3 (4.00-5.60); RDW 13.5 % (11.9-15.9)
[2024-07-02 08:07] LABS: POTASSIUM 3.9 mmol/L (3.5-5.1)
[2024-07-02 08:10] LABS: CALCIUM 8.6 mg/dL (8.5-10.1)
[2024-07-02 08:11] LABS: ALBUMIN 3.7 g/dl (3.4-5.0); BLOOD UREA NITROGEN 9.5 mg/dL (7-18)
[2024-07-02 08:14] LABS: CREATININE 0.6 mg/dL (0.55-1.3)
[2024-07-02 08:15] LABS: BILIRUBIN,TOTAL 0.7 mg/dL (0.2-1); TOT PROT 7.2 g/dl (6.4-8.2)
[2024-07-02 08:54] LABS: MAGNESIUM 2.1 mg/dL (1.8-2.4)
[2024-07-02] MEDS: ENOXAPARIN NA (PORCINE) 40 MG/0.4 ML DISP.SYRIN SQ SCH (09:49)
[2024-07-02] MEDS: ASPIRIN 81 MG CHEWABLE TABLETS PO SCH (09:50)
[2024-07-02 15:27] VITALS: BP 141/96; PULSE 108; TEMP 97.7
[2024-07-02] MEDS ORDERED: INSULIN (LEVEMIR) 100 UNITS/ML UNITS SQ SCH (22:00)
[2024-07-02] MEDS ORDERED: ATORVASTATIN CA 40 MG TABLET (FP) PO SCH (22:00)
== END 2024-07-02 16:47 | disposition home or self-care (01) | DRG 198 ==
LOC: JER 16:56 → JERBED 19:13 → OBSVTOIN 19:49 → J4W 21:10
PROVIDERS: ADMIT Internal Medicine; ATTEND Physician Assistant
DX: I20.9 Angina pectoris, unspecified (principal); R00.2 Palpitations; I10 Essential (primary) hypertension; E78.5 Hyperlipidemia, unspecified; R07.89 Other chest pain; E11.65 Type 2 diabetes mellitus with hyperglycemia; E83.42 Hypomagnesemia; I45.2 Bifascicular block; F14.988 Cocaine use, unspecified with other cocaine-induced disorder; R00.0 Tachycardia, unspecified; F10.10 Alcohol abuse, uncomplicated; M79.602 Pain in left arm
CPT/HCPCS: 36415; 71045-TC-FY; 80053; 80061; 80307; 81003; 82962; 83036; 83735; 84484; 85025; 85027; 85379; 85610; 85730; 86850; 86900; 86901; 93005; 93010; 99285-25; G0378